=== PATIENT | female | born 1995 ===

== ENCOUNTER 2021-12-13 07:00 | Inpatient (IN) | payer OTHER ==
[~2021-12-13] VITALS: Ht 154.9 cm; Wt 3.2 kg
[2021-12-13] MEDS ORDERED: PRENATABS FA T1 EACH PO (09:12)
== END 2021-12-16 17:40 | disposition home or self-care (01) | DRG 788 ==
LOC: OB/GYN 12-14 07:00 → O/R 12-14 08:46 → OB/GYN 12-14 14:30
PROVIDERS: ADMIT Obstetrics & Gynecology; ATTEND Obstetrics & Gynecology
PROC: 4A1HXCZ Monitoring of Products of Conception, Cardiac Rate, External Approach (ICD-10-PCS; 2021-12-14)
PROC: 10D00Z1 Extraction of Products of Conception, Low, Open Approach (ICD-10-PCS; principal; 2021-12-14 14:30)
DX: O34.211 Maternal care for low transverse scar from previous cesarean delivery (principal); Z3A.39 39 weeks gestation of pregnancy; Z37.0 Single live birth